=== PATIENT | female | born 1955 | race Caucasian/White ===

== ENCOUNTER 2019-03-25 09:21 | Emergency (ER) | payer MEDICARE ==
[~2019-03-25] VITALS: Ht 157.5 cm; Wt 68.0 kg
[2019-03-25 11:11] LABS: Source, Urine Catheter
[2019-03-25 11:19] LABS: Appearance, Urine Clear (Clear); Bilirubin, Urine Neg (Neg); Blood, Urine Neg (Neg); Color, Urine Yellow (P-Yellow); Glucose Qualitative, Urine Neg (Neg); Ketones, Urine Neg (Neg); Leukocyte Esterase, Urine Neg (Neg); Nitrite, Urine Neg (Neg); Protein, Urine Neg (Neg); Specific Gravity, Urine 1.005 (1.003-1.022); Urobilinogen, Urine NORM (Normal)
[2019-03-25] MEDS ORDERED: Prednisone20 MG PO (11:50)
[2019-03-25] MEDS ORDERED: Robaxin500 MG PO (11:50)
[2019-03-25] MEDS ORDERED: Percocet 7.5-31 EACH PO (11:50)
[2019-03-25] MEDS ORDERED: Cyclobenzaprine5 MG PO (12:36)
[2019-03-25] MEDS ORDERED: MONT10T PO (12:36)
[2019-03-25] MEDS ORDERED: Oxycodone-Apap1 EAC3 PO (12:36)
== END 2019-03-25 12:34 | disposition home or self-care (01) ==
LOC: ER 09:21
PROVIDERS: Physician Assistant
DX: G89.29 Other chronic pain (principal); M54.5 Low back pain; M54.2 Cervicalgia; Z88.2 Allergy status to sulfonamides; Z88.1 Allergy status to other antibiotic agents; J44.9 Chronic obstructive pulmonary disease, unspecified
CPT/HCPCS: 81003; 96374; 96375; 99283-25; J1170; J3360; P9612

== ENCOUNTER 2025-05-04 19:37 | Inpatient (IN) | payer MEDICARE ==
[~2025-05-04] VITALS: Ht 152.4 cm; Wt 78.5 kg
[~2025-05-04 19:37] MED LIST: CYCL10 PO; Cyclobenzaprine5 MG PO; MONT10T PO; Oxycodone-Apap1 EAC3 PO; Percocet 7.5-31 EACH PO; Prednisone20 MG PO; Robaxin500 MG PO
[2025-05-04] MEDS ORDERED: Ondansetron HCl 2 MG / ML 2ML Vial IV ONE (21:15)
[2025-05-04] MEDS ORDERED: FentaNYL Citrate 50 MCG/ML 2 ML Injection IV ONE (21:15)
[2025-05-05] VITALS (14 sets, daily range): BP systolic 112–175; BP diastolic 74–97
[2025-05-05] MEDS ORDERED: HYDROmorphone HCl/Pf 1MG SYR IV ONE (00:40)
[2025-05-05] MEDS ORDERED: Diazepam 5 MG / ML 2ML SYR IV ONE (01:55)
[2025-05-05] MEDS ORDERED: FentaNYL Citrate 50 MCG/ML 2 ML Injection IV PRN ×4 (02:20→16:00)
[2025-05-05] MEDS ORDERED: Ondansetron HCl 2 MG / ML 2ML Vial IV PRN ×2 (02:20→16:05)
[2025-05-05] MEDS ORDERED: NS 1,000 ML IV ONE (02:20)
[2025-05-05 04:01] LABS: BASOPHILS ABSOLUTE AUTO 0.04 K/mm3 (0.00-0.23); BASOPHILS PERCENT AUTO 0 % (0-2); EOSINOPHILS ABSOLUTE AUTO 0.01 K/mm3 (0.00-0.68); EOSINOPHILS PERCENT AUTO 0 % (0-6); Hematocrit 43.6 % (33.0-51.0); Hemoglobin 15.4 g/dL (11.5-16.0); IMMATURE GRAN ABSOLUTE AUTO 0.04 K/mm3 (0.00-0.10); IMMATURE GRAN PERCENT AUTO 0 % (0-1); LYMPHOCYTES ABSOLUTE AUTO 1.10 K/mm3 (0.84-5.20); LYMPHOCYTES PERCENT AUTO 11 % (21-46); MONOCYTES ABSOLUTE AUTO 0.70 K/mm3 (0.16-1.47); MONOCYTES PERCENT AUTO 7 % (4-13); Mean Corpuscular HGB Conc 35.3 g/dL (31.5-36.5); Mean Corpuscular Volume 96 fL (80-100); NEUTROPHILS ABSOLUTE AUTO 8.62 K/mm3 (1.96-9.15); NEUTROPHILS PERCENT AUTO 82 % (41-73); NRBC ABSOLUTE 0.00 K/mm3 (0.00-0.02); NRBC Auto 0.0 /100 WBC (0.0-0.2); Platelet Count 224 K/mm3 (150-400); RDW Coefficient Variation 13.5 % (11.7-14.2); RDW Standard Deviation 47.6 fL (35.1-46.3)
[2025-05-05] MEDS ORDERED: Ketorolac Tromethamine 15mg Vial IV ONE (04:10)
[2025-05-05 04:15] LABS: Prothrombin Time Results 11.1 Sec (9.7-11.5)
[2025-05-05 04:24] LABS: Alanine Aminotransfer (ALT/SGP 16.0 U/L (12-78); Albumin, Blood 3.1 g/dL (3.4-5.0); Albumin/Globulin Ratio 1.0 (0.8-1.8); Anion Gap 13.0 mmol/L (3-11); Aspartate Aminotrans (AST/SGOT 23.0 U/L (12-37); Bilirubin, Total 0.8 mg/dL (0.1-1.0); Blood Urea Nitrogen 7.0 mg/dL (8-24); CO2, Blood 21.0 mmol/L (21-32); Calcium, Blood 7.9 mg/dL (8.5-10.1); Chloride, Blood 105.0 mmol/L (98-108); Creatinine, Blood 0.59 mg/dL (0.40-1.00); Globulin, Blood 3.1 g/dL (2.2-4.0); Glucose, Blood 92.0 mg/dL (70-99); Potassium, Blood 3.8 mmol/L (3.5-5.5); Sodium, Blood 135.0 mmol/L (136-145); Total Protein, Blood 6.2 g/dL (6.4-8.2)
[2025-05-05] MEDS ORDERED: HYDROmorphone HCl/Pf 1MG SYR IV PRN ×2 (06:10→16:00)
--- NOTE | 2025-05-05 08:48 | NUR ---
PT TO ROOM 217 VIA ED STRETCHER. R FEMORAL NECK FX. PT NPO. IV INFUSING L HAND. PT DENIES COMPLAINTS. PUREWICK EXTERNAL CATHETER SYSTEM IN PLACE. VSS. WILL CONTINUE TO MONITOR.
[2025-05-05] MEDS ORDERED: CeFAZolin Sodium 2,000 MG in NS 100 ML IV SCH ×2 (10:05→23:30)
[2025-05-05] MEDS ORDERED: GABA400 PO (10:05)
[2025-05-05] MEDS ORDERED: TIZA4 PO (10:07)
[2025-05-05] MEDS ORDERED: OXYC5 PO (10:08)
[2025-05-05] MEDS ORDERED: VENL150ER PO (10:08)
[2025-05-05] MEDS ORDERED: Tranexamic Acid 100 ML IV SCH (10:10)
--- NOTE | 2025-05-05 12:54 | NUR ---
PT/FAMILY REQUESTING ADVANCED DIRECTIVE/POA BE SET UP. DR GOLDMAN NOTIFIED. PER DR GOLDMAN, THIS IS DONE THROUGH BOOK OR SCRIPT EDITOR/CYTOLOGIST. WILL NOTIFY INSTRUMENTATION TECH WHEN BACK FROM LUNCH OF ABOVE.
--- NOTE | 2025-05-05 15:19 | NUR ---
PT BROUGHT TO PACU VIA BED FROM RM 217 AT 1450 FOR PREOP CARE. ALERT & PLEASANT. WARM BLANKETS PLACED FOR COMFORT. SURGICAL PACK COMPLETE. LR AT TKO. NO COMPLAINTS. SURGICAL HAT/PAS SLEEVE TO LLE/BP CUFF IN PLACE. AFEBRILE/VSS. RESTING QUIETLY. WILL CONTINUE TO MONITOR VS WHILE IN MY PREOP CARE.
--- NOTE | 2025-05-05 15:24 | NUR ---
PT TO OR 4 VIA BED AT 1525 IN STABLE CONDITION.
[2025-05-05] MEDS ORDERED: FentaNYL Citrate 50 MCG/ML 2 ML Injection ONE (15:29)
[2025-05-05] MEDS ORDERED: Phenylephrine HCl 100 MCG/ML-NS 10MLSYR (1MG/10ML) ONE (15:34)
[2025-05-05] MEDS ORDERED: Metoclopramide HCl 5MG / ML 2ML Vial IV PRN (16:00)
[2025-05-05] MEDS ORDERED: Albuterol 2.5 MG/3 ML VIAL INH PRN (16:00)
[2025-05-05] MEDS ORDERED: Ondansetron HCl 2 MG / ML 2ML Vial ONE (16:01)
[2025-05-05] MEDS ORDERED: Dexamethasone Sod Phos 10 MG/ML 1ML VIAL ONE (16:01)
[2025-05-05] MEDS ORDERED: Rocuronium Bromide 10 MG/ML 5ML Injection IV ONE (16:01)
[2025-05-05] MEDS ORDERED: Sugammadex Sodium 200 MG/2ML SDV (100 MG/ML) ONE (16:02)
[2025-05-05] MEDS ORDERED: HYDROmorphone HCl/Pf 1MG SYR ONE (16:30)
--- NOTE | 2025-05-05 17:13 | NUR ---
PT TO ROOM 217 FROM PACU. AQUACELL X-1 DRESSING TO R HIP. CMS INTACT DISTALLY. POSTOP VS STARTED AND STABLE. PT MEDICATED FOR 7/10 PAIN WITH DILAUDID. SNACKS/WATER PROVIDED. REGULAR DIET TRAY ORDERED. WILL CONTINUE TO MONITOR.
--- NOTE | 2025-05-05 17:59 | NUR ---
SHIFT SUMMARY PT POST OP FOR RIGHT HIP PINNING. EATING MEAL TRAY. DENIES COMPLAINTS. WILL CONTINUE TO MONITOR. VSS POST OP.
--- NOTE | 2025-05-06 04:30 | NUR ---
SHIFT SUMMARY NOC. PT POD 1 FOR RIGHT HIP PINNING AFTER GLF. PT'S AQUACEL IS C/D/I. PT A/O X4. PT MEDICATED FOR PAIN WITH REPORTED RELIEF OF SX. PT NOT OOB THIS SHIFT AND IS TOE TOUCH WB STATUS ON RLE. PT VOIDING URINE VIA PUREWICK AND ATTENDS. PT TOLERATING PO INTAKE. PT MAKES NEEDS KNOWN, CALL LIGHT IN REACH.
[2025-05-06 04:58] VITALS: BP 141/85
[2025-05-06 05:24] LABS: BASOPHILS ABSOLUTE AUTO 0.01 K/mm3 (0.00-0.23); BASOPHILS PERCENT AUTO 0 % (0-2); EOSINOPHILS ABSOLUTE AUTO 0.00 K/mm3 (0.00-0.68); EOSINOPHILS PERCENT AUTO 0 % (0-6); Hematocrit 38.2 % (33.0-51.0); Hemoglobin 13.0 g/dL (11.5-16.0); IMMATURE GRAN ABSOLUTE AUTO 0.02 K/mm3 (0.00-0.10); IMMATURE GRAN PERCENT AUTO 0 % (0-1); LYMPHOCYTES ABSOLUTE AUTO 0.71 K/mm3 (0.84-5.20); LYMPHOCYTES PERCENT AUTO 11 % (21-46); MONOCYTES ABSOLUTE AUTO 0.36 K/mm3 (0.16-1.47); MONOCYTES PERCENT AUTO 6 % (4-13); Mean Corpuscular HGB Conc 34.0 g/dL (31.5-36.5); Mean Corpuscular Volume 100 fL (80-100); NEUTROPHILS ABSOLUTE AUTO 5.32 K/mm3 (1.96-9.15); NEUTROPHILS PERCENT AUTO 83 % (41-73); NRBC ABSOLUTE 0.00 K/mm3 (0.00-0.02); NRBC Auto 0.0 /100 WBC (0.0-0.2); Platelet Count 182 K/mm3 (150-400); RDW Coefficient Variation 13.6 % (11.7-14.2); RDW Standard Deviation 50.2 fL (35.1-46.3)
[2025-05-06 05:55] LABS: Alanine Aminotransfer (ALT/SGP 20.0 U/L (12-78); Albumin, Blood 2.7 g/dL (3.4-5.0); Albumin/Globulin Ratio 0.9 (0.8-1.8); Anion Gap 7.0 mmol/L (3-11); Aspartate Aminotrans (AST/SGOT 27.0 U/L (12-37); Bilirubin, Total 0.4 mg/dL (0.1-1.0); Blood Urea Nitrogen 7.0 mg/dL (8-24); CO2, Blood 27.0 mmol/L (21-32); Calcium, Blood 8.2 mg/dL (8.5-10.1); Chloride, Blood 106.0 mmol/L (98-108); Creatinine, Blood 0.55 mg/dL (0.40-1.00); Globulin, Blood 3.0 g/dL (2.2-4.0); Glucose, Blood 113.0 mg/dL (70-99); Potassium, Blood 4.0 mmol/L (3.5-5.5); Sodium, Blood 136.0 mmol/L (136-145); Total Protein, Blood 5.7 g/dL (6.4-8.2)
[2025-05-06 07:05] VITALS: BP 132/84
[2025-05-06] MEDS ORDERED: Enoxaparin 40 MG/0.4 ML SYR SC SCH (09:00)
[2025-05-06] MEDS ORDERED: HYDROmorphone HCl/Pf 1MG SYR IV PRN (12:20)
[2025-05-06 14:29] VITALS: BP 104/67
[2025-05-06 20:04] VITALS: BP 131/83
[2025-05-07 05:32] VITALS: BP 157/88
--- NOTE | 2025-05-07 05:42 | NUR ---
SHIFT SUMMARY NOC. PT POD 2 FOR RIGHT HIP NAILING POST GLF. AQUACEL IS C/D/I. PT A/O X4, MAKES NEEDS KNOWN. PT MEDICATED FOR PAIN WITH RERPORTED RELIEF. PT HAD PRN MUSCLE RELAXER THIS AM. PT VOIDING URINE AND TOLERATING PO INTAKE. CALL LIGHT IN REACH.
[2025-05-07 06:23] LABS: BASOPHILS ABSOLUTE AUTO 0.02 K/mm3 (0.00-0.23); BASOPHILS PERCENT AUTO 0 % (0-2); EOSINOPHILS ABSOLUTE AUTO 0.10 K/mm3 (0.00-0.68); EOSINOPHILS PERCENT AUTO 2 % (0-6); Hematocrit 38.0 % (33.0-51.0); Hemoglobin 12.9 g/dL (11.5-16.0); IMMATURE GRAN ABSOLUTE AUTO 0.02 K/mm3 (0.00-0.10); IMMATURE GRAN PERCENT AUTO 0 % (0-1); LYMPHOCYTES ABSOLUTE AUTO 1.82 K/mm3 (0.84-5.20); LYMPHOCYTES PERCENT AUTO 30 % (21-46); MONOCYTES ABSOLUTE AUTO 0.50 K/mm3 (0.16-1.47); MONOCYTES PERCENT AUTO 8 % (4-13); Mean Corpuscular HGB Conc 33.9 g/dL (31.5-36.5); Mean Corpuscular Volume 103 fL (80-100); NEUTROPHILS ABSOLUTE AUTO 3.66 K/mm3 (1.96-9.15); NEUTROPHILS PERCENT AUTO 60 % (41-73); NRBC ABSOLUTE 0.00 K/mm3 (0.00-0.02); NRBC Auto 0.0 /100 WBC (0.0-0.2); Platelet Count 170 K/mm3 (150-400); RDW Coefficient Variation 13.9 % (11.7-14.2); RDW Standard Deviation 52.7 fL (35.1-46.3)
[2025-05-07 06:47] LABS: Alanine Aminotransfer (ALT/SGP 10.0 U/L (12-78); Albumin, Blood 2.8 g/dL (3.4-5.0); Albumin/Globulin Ratio 1.0 (0.8-1.8); Anion Gap 6.0 mmol/L (3-11); Aspartate Aminotrans (AST/SGOT 14.0 U/L (12-37); Bilirubin, Total 0.4 mg/dL (0.1-1.0); Blood Urea Nitrogen 5.0 mg/dL (8-24); CO2, Blood 29.0 mmol/L (21-32); Calcium, Blood 8.3 mg/dL (8.5-10.1); Chloride, Blood 109.0 mmol/L (98-108); Creatinine, Blood 0.64 mg/dL (0.40-1.00); Globulin, Blood 2.9 g/dL (2.2-4.0); Glucose, Blood 87.0 mg/dL (70-99); Potassium, Blood 3.8 mmol/L (3.5-5.5); Sodium, Blood 140.0 mmol/L (136-145); Total Protein, Blood 5.7 g/dL (6.4-8.2)
[2025-05-07 07:42] VITALS: BP 120/76
[2025-05-07 15:46] VITALS: BP 151/87
--- NOTE | 2025-05-07 16:42 | NUR ---
SUMMARY ASSUMED CARE OF PT @0700. AXO4. VSS. R HIP DRESSING AQAUCAEL CDI. PT FOLLOWING TTAT WB STATUS. WORKED WITH OT. WORKED WITH PT - RECOMMENDING SNF PLACEMENT NOW - CARE MANAGEMENT AWARE. PT HAS BEEN UP AND OOB MULTIPLE TIMES THIS SHIFT - IS FAIRLY WEAK AND JUST STAND/PIVOTS MOST OF THE TIME. TOLERATING PO INTAKE WELL. VOIDING WELL. BM THIS SHIFT. FAMILY AT BEDSIDE T/O SHIFT. OTHERWISE PT RESTING IN BED/CHAIR OFF AND ON THIS SHIFT. OTHERWISE, NO ACUTE CHANGES THIS SHIFT.
[2025-05-07 19:10] VITALS: BP 114/84
--- NOTE | 2025-05-08 04:59 | NUR ---
SHIFT SUMMARY 70 YR F. FULL CODE. NO ACUTE CHANGES THIS SHIFT. PT CALLS APPROPRIATELY FOR ASSISTANCE AND IS A STAND/PIVOT TO BSC. MEDICATED FOR R HIP PAIN PER EMAR. PT APPEARS TO HAVE RESTED COMFORTABLY THROUGHOUT THE NIGHT. BESIDES THE HIP, SHE HAD NO OTHER C/O PAIN OR DISCOMFORT. BED IN LOW POSITION AND CALL LIGHT IN REACH.
[2025-05-08 05:57] LABS: BASOPHILS ABSOLUTE AUTO 0.04 K/mm3 (0.00-0.23); BASOPHILS PERCENT AUTO 1 % (0-2); EOSINOPHILS ABSOLUTE AUTO 0.17 K/mm3 (0.00-0.68); EOSINOPHILS PERCENT AUTO 3 % (0-6); Hematocrit 38.8 % (33.0-51.0); Hemoglobin 12.7 g/dL (11.5-16.0); IMMATURE GRAN ABSOLUTE AUTO 0.02 K/mm3 (0.00-0.10); IMMATURE GRAN PERCENT AUTO 0 % (0-1); LYMPHOCYTES ABSOLUTE AUTO 1.98 K/mm3 (0.84-5.20); LYMPHOCYTES PERCENT AUTO 31 % (21-46); MONOCYTES ABSOLUTE AUTO 0.57 K/mm3 (0.16-1.47); MONOCYTES PERCENT AUTO 9 % (4-13); Mean Corpuscular HGB Conc 32.7 g/dL (31.5-36.5); Mean Corpuscular Volume 102 fL (80-100); NEUTROPHILS ABSOLUTE AUTO 3.68 K/mm3 (1.96-9.15); NEUTROPHILS PERCENT AUTO 57 % (41-73); NRBC ABSOLUTE 0.00 K/mm3 (0.00-0.02); NRBC Auto 0.0 /100 WBC (0.0-0.2); Platelet Count 183 K/mm3 (150-400); RDW Coefficient Variation 13.6 % (11.7-14.2); RDW Standard Deviation 51.7 fL (35.1-46.3)
[2025-05-08 06:35] VITALS: BP 145/87
[2025-05-08 06:46] LABS: Alanine Aminotransfer (ALT/SGP 11.0 U/L (12-78); Albumin, Blood 2.7 g/dL (3.4-5.0); Albumin/Globulin Ratio 0.8 (0.8-1.8); Anion Gap 5.0 mmol/L (3-11); Aspartate Aminotrans (AST/SGOT 13.0 U/L (12-37); Bilirubin, Total 0.3 mg/dL (0.1-1.0); Blood Urea Nitrogen 5.0 mg/dL (8-24); CO2, Blood 29.0 mmol/L (21-32); Calcium, Blood 8.5 mg/dL (8.5-10.1); Chloride, Blood 108.0 mmol/L (98-108); Creatinine, Blood 0.58 mg/dL (0.40-1.00); Globulin, Blood 3.2 g/dL (2.2-4.0); Glucose, Blood 93.0 mg/dL (70-99); Potassium, Blood 4.0 mmol/L (3.5-5.5); Sodium, Blood 138.0 mmol/L (136-145); Total Protein, Blood 5.9 g/dL (6.4-8.2)
[2025-05-08 07:34] VITALS: BP 145/88
[2025-05-08] MEDS ORDERED: Polyethylene Glycol 3350 17 gm PO PRN (08:15)
[2025-05-08] MEDS ORDERED: GABAPENTIN600 MG PO (09:48)
[2025-05-08] MEDS ORDERED: ONDA4ODT MM (11:09)
[2025-05-08] MEDS ORDERED: MIRALAX17 GM (11:09)
[2025-05-08] MEDS ORDERED: XARELTO10 M1 PO (11:10)
[2025-05-08] MEDS ORDERED: OXYC15ER PO (11:10)
--- NOTE | 2025-05-08 14:27 | NUR ---
DISCHARGE SUMMARY PT A/OX4. VOIDING WELL, TOLERATING INTAKE. PAIN MANAGED PER EMAR. FAMILY TOOK PERSONAL BELONGINGS. ESCORTED TO [facility]R VIA WC. REPORT CALLED.
== END 2025-05-08 14:23 | DRG 482 ==
LOC: ER 19:37 → SURS 05-05 02:16 → ERHOLD 05-05 02:16 → SURS 05-05 08:38
PROVIDERS: Orthopaedic Surgery; Student in an Organized Health Care Education/Training Program; ADMIT Internal Medicine
PROC: 3E03329 Introduction of Other Anti-infective into Peripheral Vein, Percutaneous Approach (ICD-10-PCS; 2025-05-05)
PROC: 0QH634Z Insertion of Internal Fixation Device into Right Upper Femur, Percutaneous Approach (ICD-10-PCS; principal; 2025-05-05 15:00)
DX: S72.001A Fracture of unspecified part of neck of right femur, initial encounter for closed fracture (principal); I10 Essential (primary) hypertension; J44.9 Chronic obstructive pulmonary disease, unspecified; M81.0 Age-related osteoporosis without current pathological fracture; M51.369 Other intervertebral disc degeneration, lumbar region without mention of lumbar back pain or lower extremity pain; M54.9 Dorsalgia, unspecified; F17.210 Nicotine dependence, cigarettes, uncomplicated; G89.29 Other chronic pain; M54.30 Sciatica, unspecified side; Z79.899 Other long term (current) drug therapy; Z88.2 Allergy status to sulfonamides; Z88.8 Allergy status to other drugs, medicaments and biological substances; W07.XXXA Fall from chair, initial encounter
CPT/HCPCS: 36415; 71045; 72192; 73502; 73560-RT; 80053; 83880; 85025; 85610; 93005; 93010; 94760; 96374; 96375; 97110; 97112; 97162; 97166; 97530; 97535; 99285-25; A6590; A9270; C1713; C1769; J0690; J1100; J1171; J1650; J1885; J2371; J2405; J2704; J3010; J3360; J7030; J7120